=== PATIENT | female | born 1990 | race Caucasian/White ===

== ENCOUNTER 2017-05-18 15:16 | Emergency (ER) | payer MEDICAID ==
[2017-05-18] MEDS: ONDANSETRON (ODT) 4 MG TAB ODT (18:05)
[2017-05-18] MEDS: MECLIZINE 12.5 MG TAB PO (18:06)
[2017-05-18 18:15] LABS: URINE BLOOD (Dip) POC Trace-intact (NEGATIVE); URINE GLUCOSE (Dip) POC Negative (NEGATIVE); URINE KETONES (Dip) POC Negative (NEGATIVE); URINE LEUKOCYTE EST (Dip) POC 1+ (NEGATIVE); URINE NITRITE (Dip) POC Negative (NEGATIVE); URINE TOTAL PROTEIN POC Negative (NEGATIVE)
[2017-05-18] MEDS: CEPHALEXIN 500 MG CAP PO (18:59)
== END 2017-05-18 19:04 | disposition home or self-care (01) ==
LOC: FTE 15:16
DX: R42 Dizziness and giddiness (principal); N30.00 Acute cystitis without hematuria
CPT/HCPCS: 81003; 99284

== ENCOUNTER 2017-05-22 17:06 | Emergency (ER) | payer MEDICAID ==
[2017-05-22] MEDS: MECLIZINE 12.5 MG TAB PO (18:45)
[2017-05-22] MEDS: KETOROLAC 60 MG INJ IM (18:45)
[2017-05-22] MEDS: ONDANSETRON (ODT) 4 MG TAB ODT (18:45)
== END 2017-05-22 21:02 | disposition home or self-care (01) ==
LOC: FTE 17:06
DX: H81.10 Benign paroxysmal vertigo, unspecified ear (principal)
CPT/HCPCS: 96372; 99284-25; J1885

== ENCOUNTER 2017-06-28 15:55 | Emergency (ER) | payer MEDICAID ==
[2017-06-28] MEDS: ACETAMINOPHEN 325 MG TAB PO (16:46)
[2017-06-28 17:03] LABS: ADD MAN DIFF? NO
[2017-06-28 17:05] LABS: BASOPHILS % 0.3 % (0.0-2.0); EOSINOPHILS # 0.1 10^3/ul (0.0-0.5); EOSINOPHILS % 1.2 % (0.0-7.0); HEMATOCRIT 36.3 % (37.0-47.0); HEMOGLOBIN 12.5 g/dl (12.0-16.0); LYMPHOCYTES # 2.7 10^3/ul (0.8-2.9); LYMPHOCYTES % 23.5 % (15.0-51.0); MEAN CORPUSCULAR HEMOGLOBIN 28.1 pg (29.0-33.0); MEAN CORPUSCULAR HGB CONC 34.4 g/dl (32.0-37.0); MEAN CORPUSCULAR VOLUME 81.6 fl (82.0-101.0); MEAN PLATELET VOLUME 10.4 fl (7.4-10.4); MONOCYTE # 0.7 10^3/ul (0.3-0.9); MONOCYTES % 5.8 % (0.0-11.0); NEUTROPHILS % 68.6 % (39.0-77.0); PLATELET COUNT 264 10^3/UL (140-415); RED BLOOD COUNT 4.45 10^6/ul (4.20-5.40); RED CELL DISTRIBUTION WIDTH 12.7 % (11.5-14.5)
[2017-06-28 17:05] LABS: WHITE BLOOD COUNT 11.6 10^3/ul (4.8-10.8)
[2017-06-28 17:15] LABS: ADD UMIC YES; UR ASCORBIC ACID NEGATIVE (NEGATIVE); UR BILIRUBIN (Dip) NEGATIVE (NEGATIVE); UR BLOOD (Dip) 1+ mg/dL (NEGATIVE); UR CLARITY SLIGHTLY CLOUDY (CLEAR); UR COLOR STRAW (YELLOW); UR GLUCOSE (Dip) 1+ mg/dL (NEGATIVE); UR KETONES (Dip) NEGATIVE (NEGATIVE); UR LEUKOCYTE ESTERASE (Dip) 3+ Leu/ul (NEGATIVE); UR NITRITE (Dip) NEGATIVE (NEGATIVE); UR RBC 4 /HPF (0-5); UR SPECIFIC GRAVITY (Dip) 1.006 (1.003-1.030); UR SQUAMOUS EPITHELIAL CELL FEW /HPF (FEW); UR TOTAL PROTEIN (Dip) NEGATIVE (NEGATIVE); UR UROBILINOGEN (Dip) NEGATIVE (NEGATIVE); UR WBC 49 /HPF (0-5)
== END 2017-06-28 19:28 | disposition home or self-care (01) ==
LOC: FTE 15:55
DX: O23.41 Unspecified infection of urinary tract in pregnancy, first trimester (principal); R10.2 Pelvic and perineal pain; Z3A.01 Less than 8 weeks gestation of pregnancy
CPT/HCPCS: 36415; 76801; 76817; 81001; 84702; 85025; 86900; 86901; 99284-25

== ENCOUNTER 2017-07-02 17:41 | Emergency (ER) | payer MEDICAID | END 2017-07-02 20:03 | disposition home or self-care (01) | LOC: FTE 17:41 | DX: O99.611 Diseases of the digestive system complicating pregnancy, first trimester (principal); K62.5 Hemorrhage of anus and rectum; Z3A.01 Less than 8 weeks gestation of pregnancy | CPT/HCPCS: 76801; 76817; 99284-25 ==

== ENCOUNTER 2017-10-27 12:50 | Emergency (ER) | payer MEDICAID ==
[2017-10-27] MEDS: ACETAMINOPHEN 500 MG TAB PO (14:54)
== END 2017-10-27 15:27 | disposition home or self-care (01) ==
LOC: FTE 12:50
DX: O9A.212 Injury, poisoning and certain other consequences of external causes complicating pregnancy, second trimester (principal); X58.XXXA Exposure to other specified factors, initial encounter; Y92.9 Unspecified place or not applicable; Z3A.24 24 weeks gestation of pregnancy
CPT/HCPCS: 29130; 73140; 99283-25

== ENCOUNTER 2017-11-25 23:50 | Inpatient (IN) | payer MEDICAID ==
[2017-11-26 00:49] LABS: ADD UMIC YES; UR ASCORBIC ACID NEGATIVE (NEGATIVE); UR BILIRUBIN (Dip) NEGATIVE (NEGATIVE); UR BLOOD (Dip) 3+ mg/dL (NEGATIVE); UR CLARITY CLEAR (CLEAR); UR COLOR STRAW (YELLOW); UR GLUCOSE (Dip) NEGATIVE (NEGATIVE); UR KETONES (Dip) NEGATIVE (NEGATIVE); UR LEUKOCYTE ESTERASE (Dip) 1+ Leu/ul (NEGATIVE); UR NITRITE (Dip) NEGATIVE (NEGATIVE); UR RBC 1 /HPF (0-5); UR SPECIFIC GRAVITY (Dip) 1.008 (1.003-1.030); UR SQUAMOUS EPITHELIAL CELL FEW /HPF (FEW); UR TOTAL PROTEIN (Dip) NEGATIVE (NEGATIVE); UR UROBILINOGEN (Dip) NEGATIVE (NEGATIVE); UR WBC 9 /HPF (0-5)
[2017-11-26] MEDS ORDERED: ACETAMINOPHEN 325 MG TAB PO (03:30)
[2017-11-26] MEDS: BETAMET NA PHOS/AC(6 MG/ML) 5ML INJ IM (04:05)
[2017-11-26] MEDS: LACTATED RINGER'S 1,000 ML IV ×2 (04:28→16:51)
[2017-11-26] MEDS: MAGNESIUM SULFATE 4 GM/100 ML 100 ML IV (04:31)
[2017-11-26] MEDS: MAGNESIUM SULFATE 20 GM/500 ML 500 ML IV ×2 (05:02→14:52)
[2017-11-26 06:48] LABS: ADD MAN DIFF? NO
[2017-11-26 07:01] LABS: BASOPHILS % 0.2 % (0.0-2.0); EOSINOPHILS # 0.1 10^3/ul (0.0-0.5); EOSINOPHILS % 0.5 % (0.0-7.0); HEMATOCRIT 32.8 % (37.0-47.0); HEMOGLOBIN 10.9 g/dl (12.0-16.0); LYMPHOCYTES # 1.8 10^3/ul (0.8-2.9); LYMPHOCYTES % 11.6 % (15.0-51.0); MEAN CORPUSCULAR HEMOGLOBIN 27.7 pg (29.0-33.0); MEAN CORPUSCULAR HGB CONC 33.2 g/dl (32.0-37.0); MEAN CORPUSCULAR VOLUME 83.2 fl (82.0-101.0); MEAN PLATELET VOLUME 10.9 fl (7.4-10.4); MONOCYTE # 0.6 10^3/ul (0.3-0.9); MONOCYTES % 4.1 % (0.0-11.0); NEUTROPHIL # 12.7 10^3/ul (1.6-7.5); NEUTROPHILS % 82.8 % (39.0-77.0); PLATELET COUNT 226 10^3/UL (140-415); RED BLOOD COUNT 3.94 10^6/ul (4.20-5.40); RED CELL DISTRIBUTION WIDTH 13.2 % (11.5-14.5)
[2017-11-26 07:01] LABS: WHITE BLOOD COUNT 15.3 10^3/ul (4.8-10.8)
[2017-11-26 07:12] LABS: INR 0.94; PARTIAL THROMBOPLASTIN TIME 32.6 Sec (25.0-35.0); PROTIME 12.7 Sec (11.9-14.9)
[2017-11-26 07:18] LABS: MAGNESIUM 3.5 mg/dl (1.7-2.5)
[2017-11-26 07:32] LABS: ALANINE AMINOTRANSFERASE 15 IU/L (13-69); ALBUMIN 3.4 g/dl (3.3-4.9); ALBUMIN/GLOBULIN RATIO 1.06; ALKALINE PHOSPHATASE 86 IU/L (42-121); ANION GAP 14 (8-16); ASPARTATE AMINO TRANSFERASE 16 IU/L (15-46); BILIRUBIN,INDIRECT 0.3 mg/dl (0-1.1); BILIRUBIN,TOTAL 0.3 mg/dl (0.2-1.3); BLOOD UREA NITROGEN 7 mg/dl (7-20); CALCIUM 8.8 mg/dl (8.4-10.2); CARBON DIOXIDE 20 mmol/L (21-31); CHLORIDE 110 mmol/L (97-110); CREATININE 0.48 mg/dl (0.44-1.00); GLUCOSE 90 mg/dl (70-220); SODIUM 140 mmol/L (135-144); TOTAL PROTEIN 6.6 g/dl (6.1-8.1)
[2017-11-26] MEDS: metroNIDAZOLE 500 MG TAB PO ×2 (09:18→21:13)
[2017-11-26] MEDS: PRENATAL VITAMIN PO (09:18)
[2017-11-26] MEDS: FERROUS SULFATE (EC) 325 MG TAB PO (09:18)
[2017-11-26 13:01] LABS: MAGNESIUM 4.7 mg/dl (1.7-2.5)
[2017-11-26 19:07] LABS: MAGNESIUM 5.1 mg/dl (1.7-2.5)
[2017-11-27] MEDS: MAGNESIUM SULFATE 20 GM/500 ML 500 ML IV ×3 (01:02→21:10)
[2017-11-27 01:22] LABS: MAGNESIUM 5.4 mg/dl (1.7-2.5)
[2017-11-27] MEDS: BETAMET NA PHOS/AC(6 MG/ML) 5ML INJ IM (04:25)
[2017-11-27] MEDS: LACTATED RINGER'S 1,000 ML IV ×2 (04:38→17:46)
[2017-11-27 07:06] LABS: MAGNESIUM 5.4 mg/dl (1.7-2.5)
[2017-11-27] MEDS: FERROUS SULFATE (EC) 325 MG TAB PO (09:27)
[2017-11-27] MEDS: PRENATAL VITAMIN PO (09:27)
[2017-11-27] MEDS: metroNIDAZOLE 500 MG TAB PO ×2 (10:30→21:07)
[2017-11-27] MEDS: AL HYDROX/MG HYDROX/SIMETH 30 ML CUP PO (12:07)
[2017-11-27 13:01] LABS: MAGNESIUM 5.2 mg/dl (1.7-2.5)
[2017-11-27 19:16] LABS: MAGNESIUM 5.2 mg/dl (1.7-2.5)
[2017-11-28 01:38] LABS: MAGNESIUM 5.6 mg/dl (1.7-2.5)
[2017-11-28] MEDS: NIFEdipine 10 MG CAP PO ×2 (06:03→13:00)
[2017-11-28] MEDS: LACTATED RINGER'S 1,000 ML IV (07:28)
[2017-11-28] MEDS: metroNIDAZOLE 500 MG TAB PO (09:19)
[2017-11-28] MEDS: PRENATAL VITAMIN PO (09:19)
[2017-11-28] MEDS: FERROUS SULFATE (EC) 325 MG TAB PO (09:19)
== END 2017-11-28 13:30 | disposition home or self-care (01) | DRG 778 ==
LOC: OBT 23:50 → L-D 23:50
DX: O60.03 Preterm labor without delivery, third trimester (principal)
CPT/HCPCS: 76815; 76817; 80053; 81001; 82731; 83735; 85025; 85610; 85730

== ENCOUNTER 2018-01-26 21:45 | Inpatient (IN) | payer MEDICAID ==
[2018-01-27] MEDS ORDERED: LACTATED RINGER'S 1,000 ML IV (01:59)
[2018-01-27] MEDS ORDERED: IBUPROFEN 600 MG TAB PO (02:00)
[2018-01-27] MEDS ORDERED: LIDOCAINE 1% (MPF) 30 ML INJ INJ (02:00)
[2018-01-27] MEDS ORDERED: AMPICILLIN 2 GM/NS (PMX) 100 ML IV (02:00)
[2018-01-27] MEDS ORDERED: METHYLERGONOVINE 0.2 MG INJ IM (02:00)
[2018-01-27] MEDS ORDERED: CARBOPROST 250 MCG INJ IM (02:00)
[2018-01-27] MEDS ORDERED: OXYTOCIN 30 UNITS/LR 500 ML IV ×3 (02:00)
[2018-01-27] MEDS ORDERED: BUTORPHANOL 2 MG INJ IV (02:00)
[2018-01-27] MEDS ORDERED: MISOPROSTOL 200 MCG TAB PR (02:00)
[2018-01-27 02:52] LABS: ADD MAN DIFF? NO
[2018-01-27 02:54] LABS: BASOPHILS % 0.3 % (0.0-2.0); EOSINOPHILS # 0.1 10^3/ul (0.0-0.5); EOSINOPHILS % 0.5 % (0.0-7.0); HEMOGLOBIN 11.6 g/dl (12.0-16.0); LYMPHOCYTES # 2.3 10^3/ul (0.8-2.9); MEAN CORPUSCULAR HEMOGLOBIN 27.1 pg (29.0-33.0); MEAN CORPUSCULAR HGB CONC 33.1 g/dl (32.0-37.0); MEAN CORPUSCULAR VOLUME 81.8 fl (82.0-101.0); MEAN PLATELET VOLUME 11.3 fl (7.4-10.4); MONOCYTE # 0.8 10^3/ul (0.3-0.9); MONOCYTES % 6.3 % (0.0-11.0); NEUTROPHIL # 9.9 10^3/ul (1.6-7.5); NEUTROPHILS % 75.1 % (39.0-77.0); PLATELET COUNT 240 10^3/UL (140-415); RED BLOOD COUNT 4.28 10^6/ul (4.20-5.40); RED CELL DISTRIBUTION WIDTH 13.4 % (11.5-14.5)
[2018-01-27 02:54] LABS: WHITE BLOOD COUNT 13.2 10^3/ul (4.8-10.8)
[2018-01-27 03:11] LABS: INR 0.93; PROTIME 12.6 Sec (11.9-14.9)
[2018-01-27 03:46] LABS: HEPATITIS B SURFACE ANTIGEN NEGATIVE (NEGATIVE)
[2018-01-27] MEDS ORDERED: AMPICILLIN 1 GM/NS (PMX) 50 ML IV (06:00)
[2018-01-27] MEDS: LACTATED RINGER'S 1,000 ML IV ×2 (08:19→09:42)
[2018-01-27 19:32] LABS: RAPID PLASMA REAGIN NONREACTIVE (NR)
== END 2018-01-27 11:07 | disposition home or self-care (01) | DRG 833 ==
LOC: OBT 21:45 → L-D 01-27 00:09 → OBT 01-27 00:30 → L-D 01-27 00:30
PROVIDERS: Obstetrics & Gynecology
PROC: 4A1HXCZ Monitoring of Products of Conception, Cardiac Rate, External Approach (ICD-10-PCS; principal; 2018-01-27)
DX: O41.03X0 Oligohydramnios, third trimester, not applicable or unspecified (principal); Z3A.37 37 weeks gestation of pregnancy; O24.410 Gestational diabetes mellitus in pregnancy, diet controlled
CPT/HCPCS: 36415; 76815; 76818; 85025; 85610; 85730; 86592; 86850; 86900; 86901; 87340; 96360; 96361

== ENCOUNTER 2018-02-10 08:38 | Inpatient (IN) | payer MEDICAID ==
[2018-02-10] MEDS ORDERED: BUTORPHANOL 2 MG INJ IV (10:30)
[2018-02-10] MEDS ORDERED: METHYLERGONOVINE 0.2 MG INJ IM (10:30)
[2018-02-10] MEDS ORDERED: LIDOCAINE 1% (MPF) 30 ML INJ INJ ×2 (10:30)
[2018-02-10] MEDS ORDERED: OXYTOCIN 30 UNITS/LR 500 ML IV ×2 (10:30)
[2018-02-10] MEDS ORDERED: MISOPROSTOL 200 MCG TAB PR (10:30)
[2018-02-10] MEDS ORDERED: CARBOPROST 250 MCG INJ IM (10:30)
[2018-02-10] MEDS: LACTATED RINGER'S 1,000 ML IV ×3 (10:53→22:18)
[2018-02-10 11:24] LABS: ADD MAN DIFF? NO
[2018-02-10 11:35] LABS: ADD UMIC YES; UR ASCORBIC ACID NEGATIVE (NEGATIVE); UR BACTERIA MODERATE /HPF (NONE SEEN); UR BILIRUBIN (Dip) NEGATIVE (NEGATIVE); UR BLOOD (Dip) 1+ mg/dL (NEGATIVE); UR CLARITY CLOUDY (CLEAR); UR COLOR YELLOW (YELLOW); UR GLUCOSE (Dip) NEGATIVE (NEGATIVE); UR KETONES (Dip) NEGATIVE (NEGATIVE); UR LEUKOCYTE ESTERASE (Dip) 3+ Leu/ul (NEGATIVE); UR NITRITE (Dip) NEGATIVE (NEGATIVE); UR RBC 11 /HPF (0-5); UR SPECIFIC GRAVITY (Dip) 1.008 (1.003-1.030); UR SQUAMOUS EPITHELIAL CELL MANY /HPF (FEW); UR TOTAL PROTEIN (Dip) NEGATIVE (NEGATIVE); UR UROBILINOGEN (Dip) NEGATIVE (NEGATIVE); UR WBC > 182 /HPF (0-5)
[2018-02-10 11:36] LABS: BASOPHILS % 0.3 % (0.0-2.0); EOSINOPHILS % 0.3 % (0.0-7.0); HEMOGLOBIN 12.3 g/dl (12.0-16.0); LYMPHOCYTES # 1.7 10^3/ul (0.8-2.9); LYMPHOCYTES % 14.8 % (15.0-51.0); MEAN CORPUSCULAR HGB CONC 33.2 g/dl (32.0-37.0); MEAN CORPUSCULAR VOLUME 81.1 fl (82.0-101.0); MEAN PLATELET VOLUME 11.6 fl (7.4-10.4); MONOCYTE # 0.6 10^3/ul (0.3-0.9); MONOCYTES % 5.7 % (0.0-11.0); NEUTROPHIL # 8.7 10^3/ul (1.6-7.5); NEUTROPHILS % 78.4 % (39.0-77.0); PLATELET COUNT 236 10^3/UL (140-415); RED BLOOD COUNT 4.56 10^6/ul (4.20-5.40); RED CELL DISTRIBUTION WIDTH 13.9 % (11.5-14.5)
[2018-02-10 11:36] LABS: WHITE BLOOD COUNT 11.2 10^3/ul (4.8-10.8)
[2018-02-10 11:50] LABS: GLUCOSE 82 mg/dl (70-220)
[2018-02-10 11:58] LABS: PROTIME 12.2 Sec (11.9-14.9)
[2018-02-10 11:59] LABS: PARTIAL THROMBOPLASTIN TIME 30.5 Sec (23.0-35.0)
[2018-02-10] MEDS ORDERED: LIDOCAINE 0.5% (SDV) 50 ML INJ INFIL (12:00)
[2018-02-10 12:21] LABS: HEPATITIS B SURFACE ANTIGEN NEGATIVE (NEGATIVE)
[2018-02-10] MEDS: MISOPROSTOL 50 MCG CAPSULE PO (13:09)
[2018-02-10 15:09] LABS: RAPID PLASMA REAGIN NONREACTIVE (NR)
[2018-02-11] MEDS: LACTATED RINGER'S 1,000 ML IV ×3 (07:16→18:01)
[2018-02-11] MEDS: OXYTOCIN 30 UNITS/LR 500 ML IV ×2 (09:02→22:16)
[2018-02-11] MEDS ORDERED: LIDOCAINE 1% (MPF) 30 ML INJ (14:40)
[2018-02-11] MEDS ORDERED: FENTAnyl 2MCG/ML-ROPIV 0.2% 100 ML (14:42)
[2018-02-11] MEDS ORDERED: DIPHENHYDRAMINE 50 MG INJ IV (15:00)
[2018-02-11] MEDS ORDERED: ONDANSETRON 4 MG INJ IV (15:00)
[2018-02-11] MEDS ORDERED: NALOXONE (0.4 MG/ML) INJ IV (15:00)
[2018-02-11] MEDS: FENTAnyl 2MCG/ML-ROPIV 0.2% 100 ML BAG EPI (21:12)
[2018-02-11] MEDS: MINERAL OIL LIGHT 10 ML VIAL TOP (22:16)
[2018-02-11] MEDS: ACETAMINOPHEN 1000MG/100ML IV 100 ML IVPB (23:35)
[2018-02-12] MEDS: LACTATED RINGER'S 1,000 ML IV* ×3 (00:11→16:11)
[2018-02-12] MEDS ORDERED: OXYTOCIN 30 UNITS/LR 500 ML IV (00:30)
[2018-02-12] MEDS ORDERED: HYDROCODONE/APAP (5/325) TAB PO ×2 (00:30)
[2018-02-12] MEDS ORDERED: DIBUCAINE 1% 30 GM OINT TOP (00:30)
[2018-02-12] MEDS ORDERED: MISOPROSTOL 200 MCG TAB PR (00:30)
[2018-02-12] MEDS ORDERED: METHYLERGONOVINE 0.2 MG INJ IM (00:30)
[2018-02-12] MEDS ORDERED: ZOLPIDEM 5 MG TAB PO (00:30)
[2018-02-12] MEDS ORDERED: CARBOPROST 250 MCG INJ IM (00:30)
[2018-02-12] MEDS: WITCH HAZEL/GLYCERIN PAD PR (01:56)
[2018-02-12] MEDS: BENZOCAINE 20% 56 ML SPRAY TOP (01:57)
[2018-02-12] MEDS: LANOLIN 7 GM TUBE TOP (01:57)
[2018-02-12] MEDS: CEPHALEXIN 500 MG CAP PO ×4 (05:46→23:55)
[2018-02-12] MEDS: IBUPROFEN 600 MG TAB PO ×4 (05:46→23:55)
[2018-02-12 09:46] LABS: ADD MAN DIFF? NO
[2018-02-12] MEDS: MAGNESIUM HYDROXIDE 30ML CUP PO ×2 (09:49→20:22)
[2018-02-12] MEDS: SENNA/DOCUSATE NA (8.6MG/50MG) TAB PO ×2 (09:49→20:22)
[2018-02-12 09:52] LABS: BASOPHILS % 0.3 % (0.0-2.0); EOSINOPHILS # 0.1 10^3/ul (0.0-0.5); EOSINOPHILS % 0.4 % (0.0-7.0); HEMATOCRIT 31.7 % (37.0-47.0); HEMOGLOBIN 10.5 g/dl (12.0-16.0); LYMPHOCYTES # 1.8 10^3/ul (0.8-2.9); LYMPHOCYTES % 12.9 % (15.0-51.0); MEAN CORPUSCULAR HEMOGLOBIN 27.1 pg (29.0-33.0); MEAN CORPUSCULAR HGB CONC 33.1 g/dl (32.0-37.0); MEAN CORPUSCULAR VOLUME 81.9 fl (82.0-101.0); MEAN PLATELET VOLUME 11.9 fl (7.4-10.4); MONOCYTE # 1.2 10^3/ul (0.3-0.9); MONOCYTES % 8.3 % (0.0-11.0); NEUTROPHIL # 10.7 10^3/ul (1.6-7.5); NEUTROPHILS % 77.5 % (39.0-77.0); PLATELET COUNT 196 10^3/UL (140-415); RED BLOOD COUNT 3.87 10^6/ul (4.20-5.40); RED CELL DISTRIBUTION WIDTH 13.6 % (11.5-14.5)
[2018-02-12 09:52] LABS: WHITE BLOOD COUNT 13.8 10^3/ul (4.8-10.8)
[2018-02-12] MEDS ORDERED: ACETAMINOPHEN 325 MG TAB PO (15:30)
[2018-02-12] MEDS: ACCU-CHEK XX (20:22)
[2018-02-13] MEDS: LACTATED RINGER'S 1,000 ML IV* (00:11)
[2018-02-13] MEDS: CEPHALEXIN 500 MG CAP PO ×2 (05:49→11:49)
[2018-02-13] MEDS: IBUPROFEN 600 MG TAB PO ×2 (05:49→11:50)
[2018-02-13] MEDS: MAGNESIUM HYDROXIDE 30ML CUP PO (08:09)
[2018-02-13] MEDS: SENNA/DOCUSATE NA (8.6MG/50MG) TAB PO (08:09)
[2018-02-13] MEDS: DIPHTH/TET/ACEL PERTUSS (ADULT) 0.5 ML VIAL IM* (08:10)
[2018-02-13] MEDS: MEASLES,MUMPS,RUBELLA VACCINE INJ SC* (08:10)
[2018-02-13] MEDS: VARICELLA VACCINE LIVE/PF 1,350 UNIT/0.5 ML ML SC* (08:11)
== END 2018-02-13 15:47 | disposition home or self-care (01) | DRG 807 ==
LOC: L-D 08:38 → PP1 02-11 23:42 → L-D 10:05
PROC: 10E0XZZ Delivery of Products of Conception, External Approach (ICD-10-PCS; principal; 2018-02-11)
PROC: 10907ZC Drainage of Amniotic Fluid, Therapeutic from Products of Conception, Via Natural or Artificial Opening (ICD-10-PCS; 2018-02-11)
PROC: 0HQ9XZZ Repair Perineum Skin, External Approach (ICD-10-PCS; 2018-02-11)
DX: O69.81X0 Labor and delivery complicated by cord around neck, without compression, not applicable or unspecified (principal); O70.0 First degree perineal laceration during delivery; O24.429 Gestational diabetes mellitus in childbirth, unspecified control; Z37.0 Single live birth; Z3A.39 39 weeks gestation of pregnancy
CPT/HCPCS: 62319; 76815; 81001; 82947; 82962; 85025; 85610; 85730; 86592; 86850; 86900; 86901; 87086; 87340; 90715; 90716

== ENCOUNTER 2018-03-03 02:54 | Emergency (ER) | payer MEDICAID ==
[2018-03-03] MEDS: LIDOCAINE/MYLANTA 40 ML BTL PO (03:17)
[2018-03-03] MEDS: FAMOTIDINE 20 MG TAB PO (03:17)
== END 2018-03-03 03:47 | disposition home or self-care (01) ==
LOC: FTE 02:54
DX: R10.13 Epigastric pain (principal)
CPT/HCPCS: 81025; 99282

== ENCOUNTER 2018-03-18 06:24 | Emergency (ER) | payer MEDICAID ==
[2018-03-18] MEDS ORDERED: BELLADONNA/PHENOBARBITAL TAB PO (06:48)
[2018-03-18] MEDS ORDERED: LIDOCAINE/MYLANTA 40 ML BTL PO (06:48)
[2018-03-18] MEDS: ONDANSETRON (ODT) 4 MG TAB ODT (07:01)
[2018-03-18] MEDS: HYDROCODONE/APAP (5/325) TAB PO (07:02)
[2018-03-18 07:10] LABS: ADD MAN DIFF? NO
[2018-03-18 07:19] LABS: BASOPHIL # 0.1 10^3/ul (0.0-0.1); BASOPHILS % 0.4 % (0.0-2.0); EOSINOPHILS # 0.3 10^3/ul (0.0-0.5); EOSINOPHILS % 2.3 % (0.0-7.0); HEMATOCRIT 36.9 % (37.0-47.0); HEMOGLOBIN 12.1 g/dl (12.0-16.0); LYMPHOCYTES # 2.9 10^3/ul (0.8-2.9); LYMPHOCYTES % 23.7 % (15.0-51.0); MEAN CORPUSCULAR HEMOGLOBIN 26.4 pg (29.0-33.0); MEAN CORPUSCULAR HGB CONC 32.8 g/dl (32.0-37.0); MEAN CORPUSCULAR VOLUME 80.4 fl (82.0-101.0); MEAN PLATELET VOLUME 10.9 fl (7.4-10.4); MONOCYTE # 0.8 10^3/ul (0.3-0.9); NEUTROPHILS % 66.3 % (39.0-77.0); PLATELET COUNT 296 10^3/UL (140-415); RED BLOOD COUNT 4.59 10^6/ul (4.20-5.40); RED CELL DISTRIBUTION WIDTH 12.9 % (11.5-14.5)
[2018-03-18 07:36] LABS: ADD UMIC YES; UR ASCORBIC ACID NEGATIVE (NEGATIVE); UR BILIRUBIN (Dip) NEGATIVE (NEGATIVE); UR BLOOD (Dip) 2+ mg/dL (NEGATIVE); UR CLARITY CLEAR (CLEAR); UR COLOR STRAW (YELLOW); UR GLUCOSE (Dip) NEGATIVE (NEGATIVE); UR KETONES (Dip) NEGATIVE (NEGATIVE); UR LEUKOCYTE ESTERASE (Dip) 2+ Leu/ul (NEGATIVE); UR NITRITE (Dip) NEGATIVE (NEGATIVE); UR NONSQUAMOUS EPITHELIAL CELL 1 /HPF (NONE SEEN); UR RBC 6 /HPF (0-5); UR SPECIFIC GRAVITY (Dip) 1.012 (1.003-1.030); UR SQUAMOUS EPITHELIAL CELL FEW /HPF (FEW); UR TOTAL PROTEIN (Dip) NEGATIVE (NEGATIVE); UR UROBILINOGEN (Dip) NEGATIVE (NEGATIVE); UR WBC 7 /HPF (0-5)
[2018-03-18 07:44] LABS: ALANINE AMINOTRANSFERASE 55 IU/L (13-69); ALBUMIN 4.1 g/dl (3.3-4.9); ALKALINE PHOSPHATASE 109 IU/L (42-121); ANION GAP 12 (5-13); ASPARTATE AMINO TRANSFERASE 64 IU/L (15-46); BLOOD UREA NITROGEN 13 mg/dl (7-20); CALCIUM 9.3 mg/dl (8.4-10.2); CARBON DIOXIDE 27 mmol/L (21-31); CHLORIDE 105 mmol/L (97-110); CREATININE 0.64 mg/dl (0.44-1.00); Estimated GFR > 60 mL/min (>60); GLUCOSE 106 mg/dl (70-220); LIPASE 121 U/L (23-300); POTASSIUM 4.2 mmol/L (3.5-5.1); SODIUM 144 mmol/L (135-144); TOTAL PROTEIN 7.5 g/dl (6.1-8.1)
== END 2018-03-18 08:17 | disposition home or self-care (01) ==
LOC: FTE 06:24
DX: K80.20 Calculus of gallbladder without cholecystitis without obstruction (principal)
CPT/HCPCS: 36415; 76705; 80053; 81001; 81025; 83690; 85025; 99285-25

== ENCOUNTER 2018-04-07 03:13 | Emergency (ER) | payer MEDICAID | END 2018-04-07 04:30 | disposition home or self-care (01) | LOC: FTE 03:13 | DX: O90.6 Postpartum mood disturbance (principal); R40.2412 Glasgow coma scale score 13-15, at arrival to emergency department; O24.439 Gestational diabetes mellitus in the puerperium, unspecified control | CPT/HCPCS: 99282; Z7502 ==

== ENCOUNTER 2018-04-15 23:59 | Emergency (ER) | payer MEDICAID ==
[2018-04-16] MEDS: SOD CHLORIDE 0.9% 500 ML IV (01:01)
[2018-04-16] MEDS: METOCLOPRAMIDE 10 MG INJ IV (01:01)
[2018-04-16] MEDS: DIPHENHYDRAMINE 50 MG INJ IV (01:01)
[2018-04-16 01:21] LABS: ADD UMIC YES; UR ASCORBIC ACID NEGATIVE (NEGATIVE); UR BILIRUBIN (Dip) NEGATIVE (NEGATIVE); UR BLOOD (Dip) 2+ mg/dL (NEGATIVE); UR CLARITY CLEAR (CLEAR); UR COLOR COLORLESS (YELLOW); UR GLUCOSE (Dip) NEGATIVE (NEGATIVE); UR KETONES (Dip) NEGATIVE (NEGATIVE); UR LEUKOCYTE ESTERASE (Dip) NEGATIVE Leu/ul (NEGATIVE); UR NITRITE (Dip) NEGATIVE (NEGATIVE); UR RBC 1 /HPF (0-5); UR SPECIFIC GRAVITY (Dip) 1.002 (1.003-1.030); UR TOTAL PROTEIN (Dip) NEGATIVE (NEGATIVE); UR UROBILINOGEN (Dip) NEGATIVE (NEGATIVE); UR WBC 1 /HPF (0-5)
== END 2018-04-16 02:13 | disposition home or self-care (01) ==
LOC: FTE 23:59
DX: R51 Headache (principal); G47.00 Insomnia, unspecified; R40.2252 Coma scale, best verbal response, oriented, at arrival to emergency department; R40.2362 Coma scale, best motor response, obeys commands, at arrival to emergency department; R40.2142 Coma scale, eyes open, spontaneous, at arrival to emergency department
CPT/HCPCS: 81001; 81025; 84703; 87086; 96374; 96375; 99284-25

== ENCOUNTER 2018-05-28 05:01 | Emergency (ER) | payer OTHER, MEDICAID | END 2018-05-28 07:40 | disposition home or self-care (01) | LOC: FTE 05:01 | DX: G44.209 Tension-type headache, unspecified, not intractable (principal) | CPT/HCPCS: 99282; Z7502 ==

== ENCOUNTER 2018-06-23 17:17 | Emergency (ER) | payer OTHER ==
[2018-06-23] MEDS: ONDANSETRON (ODT) 4 MG TAB ODT (20:25)
[2018-06-23] MEDS: MECLIZINE 12.5 MG TAB PO ×2 (20:25→20:27)
== END 2018-06-23 21:50 | disposition home or self-care (01) ==
LOC: FTE 17:17
DX: R42 Dizziness and giddiness (principal); R11.0 Nausea
CPT/HCPCS: 99283; Z7502

== ENCOUNTER 2018-07-10 01:35 | Emergency (ER) | payer OTHER ==
[2018-07-10] MEDS: SOD CHLORIDE 0.9% 1,000 ML IV (02:24)
[2018-07-10 02:33] LABS: ADD MAN DIFF? NO
[2018-07-10 02:35] LABS: BASOPHIL # 0.1 10^3/ul (0.0-0.1); BASOPHILS % 0.5 % (0.0-2.0); EOSINOPHILS # 0.2 10^3/ul (0.0-0.5); HEMATOCRIT 36.9 % (37.0-47.0); LYMPHOCYTES # 4.2 10^3/ul (0.8-2.9); LYMPHOCYTES % 35.5 % (15.0-51.0); MEAN CORPUSCULAR HEMOGLOBIN 26.4 pg (29.0-33.0); MEAN CORPUSCULAR HGB CONC 32.5 g/dl (32.0-37.0); MEAN CORPUSCULAR VOLUME 81.3 fl (82.0-101.0); MEAN PLATELET VOLUME 10.7 fl (7.4-10.4); MONOCYTE # 0.9 10^3/ul (0.3-0.9); MONOCYTES % 7.2 % (0.0-11.0); NEUTROPHIL # 6.4 10^3/ul (1.6-7.5); NEUTROPHILS % 54.5 % (39.0-77.0); PLATELET COUNT 272 10^3/UL (140-415); RED BLOOD COUNT 4.54 10^6/ul (4.20-5.40); RED CELL DISTRIBUTION WIDTH 13.7 % (11.5-14.5)
[2018-07-10 02:35] LABS: WHITE BLOOD COUNT 11.8 10^3/ul (4.8-10.8)
[2018-07-10 02:40] LABS: ADD UMIC YES; UR ASCORBIC ACID NEGATIVE (NEGATIVE); UR BACTERIA FEW /HPF (NONE SEEN); UR BILIRUBIN (Dip) NEGATIVE (NEGATIVE); UR BLOOD (Dip) 1+ mg/dL (NEGATIVE); UR CLARITY SLIGHTLY CLOUDY (CLEAR); UR COLOR STRAW (YELLOW); UR GLUCOSE (Dip) NEGATIVE (NEGATIVE); UR KETONES (Dip) NEGATIVE (NEGATIVE); UR LEUKOCYTE ESTERASE (Dip) 3+ Leu/ul (NEGATIVE); UR NITRITE (Dip) NEGATIVE (NEGATIVE); UR RBC 8 /HPF (0-5); UR SPECIFIC GRAVITY (Dip) 1.009 (1.003-1.030); UR SQUAMOUS EPITHELIAL CELL FEW /HPF (FEW); UR TOTAL PROTEIN (Dip) NEGATIVE (NEGATIVE); UR UROBILINOGEN (Dip) NEGATIVE (NEGATIVE); UR WBC 9 /HPF (0-5)
[2018-07-10 02:54] LABS: ALANINE AMINOTRANSFERASE 21 IU/L (13-69); ALBUMIN 4.3 g/dl (3.3-4.9); ALBUMIN/GLOBULIN RATIO 1.13; ALKALINE PHOSPHATASE 85 IU/L (42-121); ANION GAP 9 (5-13); ASPARTATE AMINO TRANSFERASE 29 IU/L (15-46); BLOOD UREA NITROGEN 12 mg/dl (7-20); CALCIUM 9.6 mg/dl (8.4-10.2); CARBON DIOXIDE 25 mmol/L (21-31); CHLORIDE 109 mmol/L (97-110); CREATININE 0.64 mg/dl (0.44-1.00); Estimated GFR > 60 mL/min (>60); GLUCOSE 95 mg/dl (70-220); LIPASE 104 U/L (23-300); SODIUM 143 mmol/L (135-144); TOTAL PROTEIN 8.1 g/dl (6.1-8.1)
[2018-07-10] MEDS: ONDANSETRON 4 MG INJ IV (03:48)
[2018-07-10] MEDS: KETOROLAC 15 MG INJ IV (03:48)
== END 2018-07-10 05:30 | disposition home or self-care (01) ==
LOC: E/R 01:35
DX: N30.01 Acute cystitis with hematuria (principal); R40.2142 Coma scale, eyes open, spontaneous, at arrival to emergency department; R40.2362 Coma scale, best motor response, obeys commands, at arrival to emergency department; R40.2252 Coma scale, best verbal response, oriented, at arrival to emergency department; D72.829 Elevated white blood cell count, unspecified
CPT/HCPCS: 36415; 76705; 80053; 81001; 83690; 85025; 96374; 96375; 99285-25

== ENCOUNTER 2018-08-06 07:02 | Day surgery (SDC) | payer OTHER ==
[~2018-08-06 07:02] MED LIST: GLYCOPYRROLATE 0.4 MG INJ
[2018-08-06 07:52] LABS: ADD MAN DIFF? NO
[2018-08-06 07:58] LABS: BASOPHIL # 0.1 10^3/ul (0.0-0.1); BASOPHILS % 0.6 % (0.0-2.0); EOSINOPHILS # 0.2 10^3/ul (0.0-0.5); EOSINOPHILS % 2.4 % (0.0-7.0); HEMATOCRIT 39.4 % (37.0-47.0); HEMOGLOBIN 12.9 g/dl (12.0-16.0); LYMPHOCYTES # 2.6 10^3/ul (0.8-2.9); LYMPHOCYTES % 31.1 % (15.0-51.0); MEAN CORPUSCULAR HEMOGLOBIN 26.5 pg (29.0-33.0); MEAN CORPUSCULAR HGB CONC 32.7 g/dl (32.0-37.0); MEAN CORPUSCULAR VOLUME 81.1 fl (82.0-101.0); MEAN PLATELET VOLUME 10.8 fl (7.4-10.4); MONOCYTE # 0.7 10^3/ul (0.3-0.9); MONOCYTES % 8.6 % (0.0-11.0); NEUTROPHIL # 4.8 10^3/ul (1.6-7.5); NEUTROPHILS % 57.1 % (39.0-77.0); PLATELET COUNT 286 10^3/UL (140-415); RED BLOOD COUNT 4.86 10^6/ul (4.20-5.40); RED CELL DISTRIBUTION WIDTH 13.4 % (11.5-14.5)
[2018-08-06 07:58] LABS: WHITE BLOOD COUNT 8.4 10^3/ul (4.8-10.8)
[2018-08-06 08:04] LABS: ADD UMIC YES; UR ASCORBIC ACID NEGATIVE (NEGATIVE); UR BACTERIA FEW /HPF (NONE SEEN); UR BILIRUBIN (Dip) NEGATIVE (NEGATIVE); UR BLOOD (Dip) 3+ mg/dL (NEGATIVE); UR CLARITY CLOUDY (CLEAR); UR COLOR RED (YELLOW); UR GLUCOSE (Dip) NEGATIVE (NEGATIVE); UR KETONES (Dip) NEGATIVE (NEGATIVE); UR LEUKOCYTE ESTERASE (Dip) TRACE Leu/ul (NEGATIVE); UR MUCUS FEW /HPF (NONE SEEN); UR NITRITE (Dip) NEGATIVE (NEGATIVE); UR RBC > 182 /HPF (0-5); UR SPECIFIC GRAVITY (Dip) 1.019 (1.003-1.030); UR SQUAMOUS EPITHELIAL CELL FEW /HPF (FEW); UR TOTAL PROTEIN (Dip) 2+ mg/dl (NEGATIVE); UR UROBILINOGEN (Dip) NEGATIVE (NEGATIVE); UR WBC 124 /HPF (0-5)
[2018-08-06] MEDS ORDERED: LIDOCAINE 1%/EPI (1:100,000) (MDV) 20 ML (11:51)
[2018-08-06] MEDS ORDERED: PROPOFOL 20 ML (13:42)
[2018-08-06] MEDS ORDERED: MIDAZOLAM 1 MG/ML 2 ML INJ (13:42)
[2018-08-06] MEDS ORDERED: ONDANSETRON 4 MG INJ (13:42)
[2018-08-06] MEDS ORDERED: ROCURONIUM 50 MG INJ (13:42)
[2018-08-06] MEDS ORDERED: KETOROLAC 30 MG INJ (13:42)
[2018-08-06] MEDS ORDERED: CEFAZOLIN 1 GM INJ (13:42)
== END 2018-08-06 17:10 | disposition home or self-care (01) ==
LOC: SDS 12:54 → FTE 07:02 → 6WM 12:59 → FTE 17:12
DX: O00.101 Right tubal pregnancy without intrauterine pregnancy (principal)
CPT/HCPCS: 36415; 76801; 76817; 81001; 84702; 85025; 86900; 86901; 88305; 99284-25

== ENCOUNTER 2018-11-18 01:08 | Emergency (ER) | payer OTHER ==
[2018-11-18 02:05] LABS: URINE BLOOD (Dip) POC Trace-intact (NEGATIVE); URINE GLUCOSE (Dip) POC Negative (NEGATIVE); URINE KETONES (Dip) POC Negative (NEGATIVE); URINE LEUKOCYTE EST (Dip) POC Negative (NEGATIVE); URINE NITRITE (Dip) POC Negative (NEGATIVE); URINE TOTAL PROTEIN POC 1+ (NEGATIVE)
[2018-11-18 02:40] LABS: ADD UMIC YES; UR ASCORBIC ACID NEGATIVE (NEGATIVE); UR BACTERIA FEW /HPF (NONE SEEN); UR BILIRUBIN (Dip) NEGATIVE (NEGATIVE); UR BLOOD (Dip) NEGATIVE (NEGATIVE); UR CLARITY CLEAR (CLEAR); UR COLOR AMBER (YELLOW); UR GLUCOSE (Dip) NEGATIVE (NEGATIVE); UR KETONES (Dip) NEGATIVE (NEGATIVE); UR LEUKOCYTE ESTERASE (Dip) NEGATIVE Leu/ul (NEGATIVE); UR MUCUS FEW /HPF (NONE SEEN); UR NITRITE (Dip) NEGATIVE (NEGATIVE); UR RBC 6 /HPF (0-5); UR SPECIFIC GRAVITY (Dip) 1.031 (1.003-1.030); UR SQUAMOUS EPITHELIAL CELL FEW /HPF (FEW); UR TOTAL PROTEIN (Dip) 1+ mg/dl (NEGATIVE); UR UROBILINOGEN (Dip) 1+ mg/dL (NEGATIVE); UR WBC 2 /HPF (0-5)
[2018-11-18 02:55] LABS: ADD MAN DIFF? NO
[2018-11-18 02:56] LABS: WHITE BLOOD COUNT 12.5 10^3/ul (4.8-10.8)
[2018-11-18 02:56] LABS: BASOPHIL # 0.1 10^3/ul (0.0-0.1); BASOPHILS % 0.4 % (0.0-2.0); EOSINOPHILS # 0.1 10^3/ul (0.0-0.5); EOSINOPHILS % 0.9 % (0.0-7.0); HEMATOCRIT 39.6 % (37.0-47.0); HEMOGLOBIN 12.9 g/dl (12.0-16.0); LYMPHOCYTES # 2.6 10^3/ul (0.8-2.9); LYMPHOCYTES % 20.6 % (15.0-51.0); MEAN CORPUSCULAR HEMOGLOBIN 27.2 pg (29.0-33.0); MEAN CORPUSCULAR HGB CONC 32.6 g/dl (32.0-37.0); MEAN CORPUSCULAR VOLUME 83.4 fl (82.0-101.0); MEAN PLATELET VOLUME 10.6 fl (7.4-10.4); MONOCYTE # 0.9 10^3/ul (0.3-0.9); MONOCYTES % 7.2 % (0.0-11.0); NEUTROPHIL # 8.8 10^3/ul (1.6-7.5); NEUTROPHILS % 70.5 % (39.0-77.0); PLATELET COUNT 298 10^3/UL (140-415); RED BLOOD COUNT 4.75 10^6/ul (4.20-5.40)
[2018-11-18 03:13] LABS: ALANINE AMINOTRANSFERASE 260 IU/L (13-69); ALBUMIN 4.3 g/dl (3.3-4.9); ALBUMIN/GLOBULIN RATIO 1.16; ALKALINE PHOSPHATASE 96 IU/L (42-121); AMYLASE 63 U/L (11-123); ANION GAP 8 (5-13); ASPARTATE AMINO TRANSFERASE 379 IU/L (15-46); BILIRUBIN,INDIRECT 0.5 mg/dl (0-1.1); BILIRUBIN,TOTAL 0.5 mg/dl (0.2-1.3); BLOOD UREA NITROGEN 15 mg/dl (7-20); CALCIUM 9.3 mg/dl (8.4-10.2); CARBON DIOXIDE 29 mmol/L (21-31); CHLORIDE 102 mmol/L (97-110); CREATININE 0.75 mg/dl (0.44-1.00); Estimated GFR > 60 mL/min (>60); GLUCOSE 106 mg/dl (70-220); LIPASE 126 U/L (23-300); POTASSIUM 4.4 mmol/L (3.5-5.1); SODIUM 139 mmol/L (135-144)
[2018-11-18] MEDS: ONDANSETRON 4 MG INJ IV (04:03)
[2018-11-18] MEDS: morphine 4 MG/ML VIAL IV (04:03)
[2018-11-18] MEDS: SOD CHLORIDE 0.9% 1,000 ML IV (04:04)
[2018-11-27 18:57] LABS: URINE BLOOD (Dip) POC Trace-intact (NEGATIVE); URINE GLUCOSE (Dip) POC Negative (NEGATIVE); URINE KETONES (Dip) POC Negative (NEGATIVE); URINE LEUKOCYTE EST (Dip) POC Negative (NEGATIVE); URINE NITRITE (Dip) POC Negative (NEGATIVE); URINE TOTAL PROTEIN POC 1+ (NEGATIVE)
== END 2018-11-18 05:28 | disposition home or self-care (01) ==
LOC: FTE 05:28
DX: K80.20 Calculus of gallbladder without cholecystitis without obstruction (principal)
CPT/HCPCS: 76705; 80053; 81001; 81003; 81025; 82150; 83690; 85025; 87086; 96361; 96374; 96375; 99285-25